=== PATIENT | female | born 1990 | race Caucasian/White ===

== ENCOUNTER 2024-07-07 13:04 | Outpatient (AMB) | payer OTHER, SELFPAY ==
--- NOTE | 2024-07-07 13:02 | MHC.OFFWIV ---
Intake Vital Signs 07/07/24 13:10 Height 5 ft 1 in Weight 154 lb BMI 29.1 BP 110/70 Blood Pressure Location Rt brachial Position Sitting Pulse 69 Pulse Source Pulse Oximeter Pulse Oximetry (%) 99 Oxygen Delivery Method Room Air Intake Visit Reasons: Cramping on Left leg Intake Note: Patient here for left leg pain/tingling in foot that has been present for about 1 month. pain starts at back of calve and radiates down to the bottom of the foot. Patient Tobacco Use Status: Never used Tobacco Allergies No Known Allergies Allergy (Verified 07/07/24 13:12) Do you need a note to return to daycare/school/sports/work: No HPI HPI Comments History of Present Illness Details Patient is a 33-year-old female complaining of left lower extremity pain for the last 4-6 weeks. She states she did not injure herself when this started. She states she does go the gym and lift weights but has not been doing anything out of her typical workout and did not sustain any injuries. She states the pain is in her caught calf and it radiates down to her heel down to the tips of her toes along the bottom of her foot. She had been trying to ice it and rest at but does not seem to be getting any better [facility] Social History Patient Tobacco Use Status: Never used Tobacco Review of Systems Const All systems reviewed & are unremarkable except as noted in HPI and below Physical Exam Vital Signs: Last Vital Signs Pulse 69 07/07/24 13:10 BP 110/70 07/07/24 13:10 Pulse Ox 99 07/07/24 13:10 Oxygen Delivery Method Room Air 07/07/24 13:10 BMI result Body Mass Index 29.1 Const General: cooperative, healthy appearing, comfortable and no acute distress Orientation/consciousness: patient oriented x3 Limitations: no limitations HEENT Head: Yes normal to inspection Resp Effort & Inspection: normal respiratory effort and able to speak in complete sentences Neuro General: patient oriented x3 Extrem Right lower extremity: lower leg (pain with calf squeeze) Details: tenderness Location: of the posterior calf and no edema; no erythema, no lacerations, no ecchymosis and no unusual warmth and foot Assessment & Plan Assessment & Plan (1) Achilles tendinitis, left leg: Code(s): M76.62 - Achilles tendinitis, left leg Plan: Recommended a leave around the clock for 5-7 days as well as taping biophysical therapist and ice and rest. If no improvement, follow up with PCP Plan See above Coding Level of Care Code New Pt Level 3 (57988) Diagnoses Achilles tendinitis, left leg M76.62
[2024-07-07 13:10] VITALS: BP 110/70; PULSE 69; O2SAT 99; BMI 29.1
== END 2024-07-07 13:43 | disposition home or self-care (01) ==
PROVIDERS: Visit Provider Physician Assistant
DX: M76.62 Achilles tendinitis, left leg (principal)
CPT/HCPCS: 99203

== ENCOUNTER 2024-07-16 16:03 | Outpatient (REF) | payer OTHER, SELFPAY ==
--- NOTE | ~2024-07-16 | US_ITS ---
EXAMINATION: ULTRASOUND SOFT TISSUES LEFT PROXIMAL MID CALF CLINICAL INFORMATION: Palpable mass tenderness mid outer lower leg, calf. COMPARISON: None available. TECHNIQUE: Targeted ultrasound images were obtained by the form carpenter of the area of concern as indicated by the patient in the left [id number] medial outer calf. Radiologist was not in attendance. Images were later provided for interpretation. FINDINGS: There appear to be prominent varicose veins extending off the left greater saphenous vein with superintendent compressor stations in the area of concern indicated by the patient in the mid medial left calf. US/US extremity nonvascular rosas IMPRESSION: There appear to be prominent varicose veins extending off the left greater saphenous vein with superintendent compressor stations in the area of concern indicated by the patient in the mid medial left calf. Correlation with clinical exam recommended. Dedicated vascular study of the lower extremity could be considered for further evaluation. Electronically signed by: Alba Parnell MD 07/30/2024 07:01 AM EDT
== END 2024-07-16 16:04 | disposition home or self-care (01) ==
LOC: HO.US 16:03
PROVIDERS: PCP Nurse Practitioner Family; Visit Provider Nurse Practitioner Family
DX: M79.605 Pain in left leg (principal)
CPT/HCPCS: 76882

== ENCOUNTER 2025-07-30 14:25 | Emergency (ER) | payer OTHER, SELFPAY ==
[2025-07-30] VITALS (8 sets, daily range): BP systolic 108–120; BP diastolic 63–82; PULSE 63–105; RESP 14–18; TEMP 36.4–37; O2SAT 95–100; BMI 25.6
--- NOTE | ~2025-07-30 | US_ITS ---
CLINICAL HISTORY: abnormal LFTs ULTRASOUND ABDOMEN LIMITED COMPARISON: None provided. FINDINGS: The liver is unremarkable. There is no focal liver lesion. The gallbladder is unremarkable. No stone, sludge, wall thickening, or pericholecystic fluid. Common bile duct measures 1-2 mm in caliber. Right kidney measures 11.3 cm. No stone or hydronephrosis. Pancreas is not well visualized, the visualized portions are unremarkable. There are no fluid collections. IMPRESSION: 1. No acute disease. This document has been electronically signed by: Aristides Barboza M.D. on 07/30/2025 22:42:50
--- NOTE | 2025-07-30 14:29 | ED_ITS ---
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 No recent travel or procedures she did go fishin recently but no wounds or tick bites. She has no CP/SOB, n/v/d, bloody stools or infectious symptoms. She has been increasing her water intake. She has had episodes where her hands and feet feel tingly and cold. MD complaint: weak/near syncope Onset (ago): day(s) (last night) Location: chest Radiation: non-radiation Severity: mild Relieving factors: none Exacerbating factors: movement Associated symptoms: fever/chills, weakness and other Treatments prior to arrival: none Related Data Home Medications ?Medication ?Instructions ?Recorded ?Confirmed No Known Home Meds 07/07/24 07/07/24 Allergies Allergy/AdvReac Type Severity Reaction Status Date / Time No Known Allergies Allergy Verified 07/30/25 14:29 Review of Systems 2 Review of Systems: Constitutional : No Fever, pos Chills, No Fatigue ENT/Mouth : No sore throat, No Rhinorrhea Eyes: No Eye Pain, No Swelling, No Redness Cardiovascular : No Chest Pain, No SOB, No Dyspnea on Exertion Respiratory : No Cough, No Sputum Gastrointestinal : No Nausea, No Vomiting, No Diarrhea, No abdominal Pain Genitourinary : No Dysuria, No Urinary Frequency, No Hematuria, Musculoskeletal : No joint pain, No Myalgias, No Joint Swelling Skin : No Skin Lesions, No rash Neuro : No Weakness, No Numbness, pos Dizziness, no Headache All other systems reviewed and are negative [facility] Past Medical History Attestation statement: The following information was validated with the patient. Source: old records reviewed Medical History (Updated 07/30/25 @ 22:50 by Marisol Rogers DO) Achilles tendinitis, left leg Social History Social History Alcohol intake: unknown Patient Tobacco Use Status: Never used Tobacco Smoked in Last 30 Days: No Use of substances other than those prescribed or required for medical reasons: No Advance Directives: No Advance Directives Information Provided: No Physical Exam ED Vital Signs: Vital Signs - 24 hr 07/30/25 14:29 07/30/25 17:46 07/30/25 18:27 Temperature 98.6 F 98.3 F Pulse Rate 84 71 68 Respiratory Rate 18 16 Blood Pressure 118/74 117/74 113/79 Pulse Oximetry 100 99 Oxygen Delivery Method Room Air Room Air 07/30/25 18:29 07/30/25 18:32 07/30/25 19:18 Temperature 97.5 F Pulse Rate 105 H 103 H 72 Respiratory Rate 14 Blood Pressure 120/71 115/82 114/71 Pulse Oximetry 97 Oxygen Delivery Method Room Air 07/30/25 22:19 Temperature 98.1 F Pulse Rate 63 Respiratory Rate 16 Blood Pressure 108/63 Pulse Oximetry 98 Oxygen Delivery Method Room Air BMI result Body Mass Index 25.6 Appearance: Alert. Oriented X3. No acute distress. Eyes: Pupils equal, round and reactive to light. ENT: Pharynx normal. Neck: Normal inspection. Neck supple. CVS: Normal heart rate and rhythm. Pulses normal. Respiratory: No respiratory distress. Breath sounds normal. Abdomen: Soft and nontender. Skin: Skin warm and dry. Normal skin color. Extremities: No lower extremity edema. Neuro: Oriented X 3. No motor deficit. No sensory deficit. Course Course Course Narrative: This is a rapid medical exam performed by Keira Barksdale NP: Additional HPI, ROS, PE not included below will be deferred to primary provider. Patient is a 34-year-old female presenting to ED with complaint of HR ranging from high 50's to 120's noted on a pulse oximeter since this morning. Denies chest pain. Complains of feeling lightheaded. Plan: EKG, labs, viral swabs Medications Administered Discontinued Medications Generic Name Dose Route Start Last Admin Trade Name Freq PRN Reason Stop Dose Admin Lactated Ringer's 1,000 mls @ 999 mls/hr 07/30/25 19:00 07/30/25 20:04 Lr IV 07/30/25 20:00 999 mls/hr .Q1H1M ONE Administration Ketorolac Tromethamine 15 mg 07/30/25 21:33 07/30/25 22:01 Ketorolac Tromethamine 15 Mg/Ml Vial IVPUSH 07/30/25 21:34 15 mg ONCE ONE Administration Medical Decision Making Medical Decision Making [facility] Narrative: 34 yo female here with no CP/SOB but having increased HR she has no risk factors for VTE and PERC negative pulse up with orthostatics will give IVF, she has normal EKG, will obtain lytes, hcg, ortho VS, UA, tick panel and reassess after IV hydration. She has slightly elevated LFTs US ordered but no pain or recent GI illness. Denies heavy ETOH use. Differential Diagnosis Differential Diagnoses: The differential diagnosis associated with the presentation includes orthostatics, anemia, tick borne, lytes no CP/SOB to suggest VTE, no risk factors and no DVT Admission/Observation Consideration of admission/observation: Escalation of care including admission/observation considered other than LFTs no acute findings on work up Lab Data [facility] Lab Attestation statement: I reviewed the patient's lab results. 07/30/25 14:55 07/30/25 14:55 Labs: Lab Results 07/30/25 07/30/25 07/30/25 Range/Units 14:55 20:02 21:41 WBC 7.1 (4.8-10.8) X10*3/uL RBC 4.70 (4.20-5.50) X10*6/uL Hgb 13.9 (12.0-16.0) g/dl Hct 40.5 (37.0-47.0) % MCV 86.2 (80.0-98.0) fL MCH 29.6 (27.0-33.0) pg MCHC 34.3 (31.0-35.0) g/dl RDW 11.9 (11.0-16.0) % Plt Count 294 (160-400) X10*3/uL MPV 9.0 L (9.4-12.3) fL Immature Gran % (Auto) 0.1 (0.0-0.4) % Neut % (Auto) 65.0 (45-73) % Lymph % (Auto) 25.9 (20-40) % [place] % (Auto) 7.8 (2-11) % Eos % (Auto) 0.8 (0-4) % Baso % (Auto) 0.4 (0-2) % Lymph # (Auto) 1.8 (1.2-4.9) X10*3/uL [place] # (Auto) 0.6 (0.1-1.2) X10*3/uL Eos # (Auto) 0.1 (0.0-0.4) X10*3/uL Baso # (Auto) 0.0 (0.0-0.2) X10*3/uL Abs Immat Gran (auto) 0.01 (0.00-0.03) X10*3/uL Absolute Neuts (auto) 4.6 (2.0-8.3) x10*3/uL Absolute Nucleated RBC 0.000 (0.0-0.012) X10*3/uL Nucleated RBC % (auto) 0.0 (0.0-0.2) /100WBC Sodium 139 (135-145) mmol/L Potassium 3.6 (3.3-5.1) mmol/L Chloride 107 (96-108) mmol/L Carbon Dioxide 26 (22-29) mmol/L Anion Gap 10 L (12-20) BUN 11 (9-16) mg/dL Creatinine 0.69 (0.5-1.4) mg/dL Estim Creat Clear Calc 110.6 Estimated GFR > 60 Random Glucose 96 (60-115) mg/dL Calcium 9.2 (8.4-10.2) mg/dL Magnesium 1.9 (1.6-2.6) mg/dL Total Bilirubin 1.6 H (0.0-1.0) mg/dL AST 139 H (5-31) U/L ALT 115 H (0-31) U/L Alkaline Phosphatase 63 (39-117) U/L Troponin I High Sens < 2.7 (<3.5-17.0) ng/L Total Protein 6.7 (6.5-8.0) g/dL Albumin 4.4 (3.5-5.0) g/dL TSH 1.06 (0.32-4.0) uIU/mL Beta HCG, Quant < 2 mIU/mL Urine Color Yellow Urine Appearance Clear Urine pH 6.0 (5.0-9.0) Ur Specific [place] 1.015 (1.005-1.025) Urine Protein Negative (Neg-Trace) mg/dL Urine Glucose (UA) Negative (Negative) mg/dL Urine Ketones 15 (Negative) mg/dL Urine Blood Negative (Negative) Urine Nitrite Negative (Negative) Ur Leukocyte Esterase Negative (Negative) COVID-19 (LETICIA) Negative (Negative) COVID-19 Clin Com See Note Independent Interpretation I performed an independent interpretation of an: EKG and Ultrasound (normal ) Interpretation: Rate: 75 Rhythm: NSR [place]: normal Normal P waves. Normal BIRD. Normal QRS complex. ST T wave : inverted t waves V1, normal qTC: normal prior studies: no acute ischemia The study has been interpreted contemporaneously by me. . Radiology Impression Discussion of test interpretation with radiology: I have reviewed the radiologist's reading. External Record Review External record reviewed: Outpatient record Prescription Management I considered prescription management with: Other Discharge Plan Discharge Clinical Impression: Palpitations, Elevated liver enzymes Patient Disposition: Home, Self-Care Instructions: Heart Palpitations (ED), Near Syncope (ED) Additional Instructions: avoid alcohol and tylenol covid swab is negative I have pending tick panels/lyme and hepatitis panel your ultrasound of liver and gallbladder are normal please repeat your liver enzymes by next Sunday - return for yellow eyes or any other symptoms your EKG and cardiac work up was reassuring rest and stay hydarted. Prescriptions: No Action No Known Home Meds Stand Alone Forms: Work/School Release Print Language: [place]
--- NOTE | 2025-07-30 14:31 | ECG_ITS ---
Test Reason : lightheaded Blood Pressure : */* mmHG Vent. Rate : 75 BPM Atrial Rate : 75 BPM P-R Int : 128 ms QRS Dur : 88 ms QT Int : 362 ms P-R-T Axes : 70 56 46 degrees QTcB Int : 404 ms Normal sinus rhythm with sinus arrhythmia Low voltage QRS Borderline ECG No previous ECGs available Referred By: Agatha Barksdale Electronically Signed By: Francis Edgar
[2025-07-30 15:00] LABS: MANUAL DIFF FLAG NO
[2025-07-30 15:01] LABS: Hematocrit 40.5 % (37.0-47.0); Hemoglobin 13.9 g/dl (12.0-16.0); Imm Gran Abs Auto 0.01 X10*3/uL (0.00-0.03); Imm Gran Pct Auto 0.1 % (0.0-0.4); Lymphocytes Absolute Auto 1.8 X10*3/uL (1.2-4.9); Mean Corpuscular HGB Conc 34.3 g/dl (31.0-35.0); Mean Corpuscular Hemoglobin 29.6 pg (27.0-33.0); Mean Corpuscular Volume 86.2 fL (80.0-98.0); NRBC Abs Auto 0.000 X10*3/uL (0.0-0.012); NRBC Pct Auto 0.0 /100WBC (0.0-0.2); Platelet Count 294 X10*3/uL (160-400); Red Blood Count 4.70 X10*6/uL (4.20-5.50); White Blood Count 7.1 X10*3/uL (4.8-10.8)
[2025-07-30 15:35] LABS: Alanine Aminotransferase 115 U/L (0-31); Albumin Level 4.4 g/dL (3.5-5.0); Alkaline Phosphatase 63 U/L (39-117); Anion Gap 10 (12-20); Aspartate Amino Transferase 139 U/L (5-31); Blood Urea Nitrogen 11 mg/dL (9-16); Calcium 9.2 mg/dL (8.4-10.2); Carbon Dioxide 26 mmol/L (22-29); Chloride 107 mmol/L (96-108); Creatinine Clr Calc Pharmacy 110.6; Estimated Glomerular Filt Rate > 60; Magnesium 1.9 mg/dL (1.6-2.6); Potassium 3.6 mmol/L (3.3-5.1); Sodium 139 mmol/L (135-145); Total Protein 6.7 g/dL (6.5-8.0); Troponin-I High Sensitivity < 2.7 ng/L (<3.5-17.0)
--- OUTSIDE RECORDS SUMMARY | 2025-07-30 18:22 | XMS_ITS | Encounter Summary ---
Author Organization [facility] Address [address] [place] [address] [place] [id number] Phone Care Team Providers Care Antisqueak Applier Name Role Phone Mirta Casillas MD Primary Care Provider Reyna Goode JAVA DEVELOPER Primary Care Provider Pcp, Unknown Primary Care Provider Ba Rosenbaum JAVA DEVELOPER Primary Care Provider [phone] Encounter Details Date Type Department Care Team (Late st Contact Info) Description 11/28/2018 Procedure Pass [facility] L[facility]D Procedures [address] [place] [address] Social History Tobacco Use Types Packs/Day Years Used Date Smoking Tobacco: Never Smokeless Tobacco: Never Alcohol Use Standard Drinks/Week Comments No 0 (1 standard drink = 0.6 oz pur e alcohol) Comments No Sex and Gender Information Value Date Recorded Sex Assigned at Not on file Legal Sex Female 12:15 PM EDT Gender Identity Not on file Sexual Orientation Not on file 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 Not on file Not on file documented as of this encounter Plan of Treatment Not on file documented as of this encounter Visit Diagnoses Not on filedocumented in this encounter Care Teams Antisqueak Applier Relationship Specialty Start Date End Date Mirta Casillas MD [address] [place] [address] PCP - General Family Medicine 12/1/18 4/24/19 Reyna Goode NP [address] [place] [id number] [email or web address] PCP - General Family Medicine 03/20/19 06/05/21 Pcp, Unknown PCP - General 06/06/21 06/30/21 Ba Contreras NP PCP - General 07/01/21 documented as of this encounter Additional Source Comments The information contained in this document represents components of the legal health record. It is not the complete legal health record.[facility]
--- OUTSIDE RECORDS SUMMARY | 2025-07-30 18:22 | XMS_ITS | Clinical Summary ---
Author Organization [facility] Address [address] [place] [id number] Care Team Providers Care Supervisor Microbiology Technologists Name Role Phone Unavailable Primary Care Provider Unavailabl e Allergies Active Allergy Reactions Criticality Noted Date Comments Adhesive Tape Other (See Comments) 10/30/2023 EKG leads, gel on electrodes irritates skin, requiring Benadryl Medications No known medications Social History Tobacco Use Types Packs/Day Years Used Date Smoking Tobacco: Never Smokeless Tobacco: Never Tobacco Cessation:Counseling Given: Not Answered Alcohol Use Standard Drinks/Week Comments Not Currently 0 (1 standard drink = 0.6 oz pur e alcohol) Special occasions Sex and Gender Information Value Date Recorded Sex Assigned at Female 10/22/2023 9:31 AM EST Gender Identity Not on file Sexual Orientation Not on file Job Start Date Occupation Industry Not on file Not on file Not on file Last Filed Vital Signs Vital Sign Reading Time Taken Comments Blood Pressure 109/61 11/05/2023 4:13 PM EST Pulse 98 11/05/2023 4:13 PM EST Temperature 37.4 C (99.3 F) 11/05/2023 4:00 PM EST Respiratory Rate 16 11/05/2023 4:13 PM EST Oxygen Saturation 95% 11/05/2023 4:13 PM EST Inhaled Oxygen Concentration - - Weight 68 kg (150 lb) 10/30/2023 2:59 PM EST Height 153.7 cm (5' 0.5 ) 10/30/2023 2:59 PM EST Body Mass Index 28.81 10/30/2023 2:59 PM EST Plan of Treatment Not on file
--- OUTSIDE RECORDS SUMMARY | 2025-07-30 18:22 | XMS_ITS | Encounter Summary ---
Author Organization [facility] Address [address] [facility] [address] [place] [address] Phone Care Team Providers Care Water Trainer Name Role Phone BenBa stewart Scott HYDROGRAPHIC SURVEYOR Primary Care Provider [phone] Encounter Details Date Type Department Care Team ([facility] Contact Info) Description 03/22/2022 Procedure Pass [facility] L[facility] Procedures [address] [place] [address] Social History Tobacco Use Types Packs/Day Years Used Date Smoking Tobacco: Never Smokeless Tobacco: Never Alcohol Use Standard Drinks/Week Comments Not Currently 0 (1 standard drink = 0.6 oz pur e alcohol) Comments No Sex and Gender Information Value Date Recorded Sex Assigned at Not on file Legal Sex Female 12:15 PM EDT Gender Identity Not on file Sexual Orientation Not on file Occupation Industry Job Start Date Job End Date RN Not on file Not on file Not on file documented as of this encounter Functional Status * Calculated C-SSRS Risk Score (Lifetime/Recent) Answer Date of Assessment Author No Risk Indicated 03/24/2022 11:18 AM PETERT Herminio Montoya RN * Real Suicide Severity Rating Scale (Screener/Recent Self-Report) Question Answer Date of Assessment Author 1. Wish to be (Past 1 Month) No 022 11:18 AM EDT Herminio Montoya, OSWALD 2. Non-Specific Active Suici theodora Thoughts (Past 1 Month) No 03/24/2022 11:18 AM EDT Jenny Montoya RN 6. Suicidal Behavior (Lifetime) No 04/29/202 2 11:18 AM EDT Herminio Montoya RN documented as of this encounter Plan of Treatment Not on file documented as of this encounter Visit Diagnoses Not on filedocumented in this encounter Care Teams Water Trainer Relationship Specialty Start Date End Date Ba Contreras NP PCP - General 07/01/21 documented as of this encounter Additional Source Comments The information contained in this document represents components of the legal health record. It is not the complete legal health record.[facility]
--- OUTSIDE RECORDS SUMMARY | 2025-07-30 18:22 | XMS_ITS | Clinical Summary ---
Author Organization [facility] Address [address] [place] [phone] Phone Care Team Providers Care Head Baggage Porter Name Role Phone Ba Contreras BELT MACHINE OPERATOR Primary Care Provider [phone] Allergies Active Allergy Reactions Criticality Noted Date Comments Adhesive Tape-Silicones Other (See Comments) 10/30/2023 EKG leads, gel on electrodes irritates skin, requiring Benadryl Medications No known medications Active Problems Problem Noted Date Diagnosed Date Pap smear abnormality of cer vix/human papillomavirus (HPV) positive 08/07/2022 Intractable migraine with aura 09/12/2021 Overview (09/12/2021): Well managed w/ tylenol. Was very prevalent during adolescent Assessment & Plan (09/12/2021 2:46 PM EDT): Well managed w/ tylenol. Was very prevalent during adolescent Anxiety and depression 09/12/2021 Overview (09/12/2021): Hx of anxiety and depression. Goes to the gym. Not on meds and does not see a therapist. States she is managing well. Assessment & Plan (09/12/2021 2:45 PM EDT): Hx of anxiety and depression. Goes to the gym. Not on meds and does not see a therapist. States she is managing well. History of abnormal cervical Pap smear Overview (08/15/2022): 2020: ASCUS/HPV pos, colpo benign 2020: LGSIL/HPV pos, colpo appeared normal (no bx done bc of ) 2021: ASCUS/HPV pos, colpo benign Plan: repeat pap in 1 year Assessment & Plan (08/07/2022 10:55 AM EDT): 2019: ASCUS/HPV pos, colpo benign 2020: LGSIL/HPV pos, colpo appeared normal (no bx done b/c of ) 2021: ASCUS/HPV pos Assessment & Plan (12/21/2021 9:22 AM EST): A colposcopy was done in October and the overall impression was no dysplasia. Plan on repeat Pap . Diastasis recti 01/23/2019 Need for hepatitis B vaccination 05/21/2017 Migraine, unspecified, not i ntractable, without status migrainosus 06/11/2015 Resolved Problems Problem Noted Date Diagnosed Date Resolved Date Normal intrauterine , antepartum 03/22/2022 05/02/2022 Assessment & Plan (03/22/2022 4:24 AM EDT): -SROM confirmed. Pos Nitrazine. Grossly ruptured -Breech confirmed today w/ Bedside US -Admit to CBC -Pt consented to COVID testing -Admission labs ordered -Reactive NST -Cont. Monitoring -GBS was collected yesterday results still pending. Will treat as GBS unknown -Pre-op abx ordered -MD in house -Plan for repeat C/S when acuity of the floor permits -Last PO intake at midnight -Anticipate Velamentous insertion of umb ilical cord in third trimester 11/22/2021 05/02/2022 Overview (02/28/2022): Level 2 (R/o vaso previa): done 01/02/22: no e/o vasa previa Serial Growth U/S q 4-6 wks NST and BPP weekly after 36 wks Delivery by 40 wks Continuous EFM 02/07/22 (30'5) - BPP 8 13th%ile 02/28/22 - had level 2, reported as normal biometry Assessment & Plan (03/14/2022 8:31 AM EDT): Plan on twice-weekly testing until her . This will be NSTs alternating with BPP's. NST this . Had BPP of 07/03 yesterday. We will plan on growth ultrasound for next week. movement counts reviewed. Assessment & Plan (03/02/2022 3:38 PM EDT): Next BPP ordered, check growth again in a month Assessment & Plan (12/21/2021 9:21 AM EST): There is no evidence of vasa previa on her routine anatomic survey. However, it is reasonable to check a Level II. Otherwise plans here ultrasounds for growth and weekly NSTs at 36 weeks. Rubella non-immune status, antepartum 10/22/2021 08/07/2022 Overview (10/22/2021): Really, rubella equivocal. Vaccinate PP. Encounter for supervision of normal in third trimester 09/12/2021 08/07/2022 Overview (02/28/2022): OB-CMI score: 1 [09/12/2021] Group PN care? No Rh Positive GC/Chlam - Negative PAP 10/16 - LGSIL/HPV Positive; colpscopic impression - no dysplasia Rubella equivocal Tdap: done Flu: done Hgb 12 GTT 127 28 wk Repeat RPR neg GBS * PPBC - discussed option for TL; she will consider; also advised that IUD can be placed at time of c section if they are not certain of permanence of TL screening * Assessment & Plan (03/14/2022 8:07 AM EDT): She notes good movement. Denies any vaginal bleeding, leakage of fluid, or regular contractions. Overall, she is doing well. Plan GBS next visit. Assessment & Plan (02/28/2022 11:05 AM EDT): Here with and son Kj Baez FM, had Level 2 yesterday with good growth, a repeat in 2 weeks is set up with our MFM Considering TL with the C section lilliana with h/o migraine with aura; had an IUD that was malpositioned - let her know that IUD can be placed at time of c section; reminded re permanence of TL Assessment & Plan (12/21/2021 9:17 AM EST): She notes good movement. She denies any vaginal bleeding, leakage of fluid, or regular contractions. Overall, she is doing well. Plan on CBC, repeat RPR, and Glucola over the next couple of weeks. Assessment & Plan (09/12/2021 2:49 PM EDT): Marleni is a 30 y.o. at 9w4d states she feels well today. Her only concern is increase N/V. States it is worse during this in comparison to her previous . Denies any LOF/Vaginal bleeding/Ucs. -Review warning signs and when/how to contact midwives -Re-oriented to our practice -Advised on care structure -Will like cfDNA for genetic testing. Will call insurance to see if its covered -Will like CF carrier screening. -Unsure if she wants to see CNM or MD. Nausea and vomiting 09/12/2021 08/07/20 22 Assessment & Plan (09/12/2021 2:42 PM EDT): Anticipatory guidance provided regarding nausea and vomiting in . We reviewed that nausea is a common symptom and is self-limited, usually resolving by mid- with or without treatment. We discussed that initial treatment involves reassurance and counseling on dietary and lifestyle changes, including eating consistently every 2-3 hours, bland foods, issa tea or chews, gum, acupressure bands. We reviewed realistic expectations, and discussed that interventions may not completely resolve nausea. Tips for Managing Nausea in Early Issa cindy, chews or tea Peppermint tea Eat small frequent meals- graze every 2-3 hours so your stomach is never empty. Avoid large meals. Eat slowly. Keep snacks (crackers, pretzels, nuts) by your bedside- sometimes eating a little bit before getting up will help a lot. Avoid foods that have strong odors. Sucking on a lemon or [place] slice may help. Don't worry about adhering to a balanced diet unless you are diabetic; just eat whatever appeals to you until the nausea goes away. [place] foods often make nausea worse. Acupressure wristbands might help- sold in drug and health food stores. Acupuncture may also be helpful. Try drinking carbonated beverages between meals; wait for 30 minutes after eating to drink liquids. vitamins can make nausea worse; try taking them before bed, and if that doesn't help, stop taking them until your nausea goes away. Discuss with your provider. If you are not taking vitamins you should take one tablet of folic acid daily (0.4 mg which is 400micrograms per day) during the first trimester. Folic acid will not make nausea worse. Try vitamin B6 25mg three times a day can help and it's considered to be safe. Most importantly, nausea is very common . However, if you have severe vomiting and you aren't keeping anything down for 24 hours or more, give us a call and we'll help. She was instructed to call if she has severe N/V, is unable to keep food and fluid down x 24 hours, stops producing urine, feels faint or dizzy, or loses a significant amount of weight. History of delivery 09/12/2021 05/02/2022 Overview (02/28/2022): Planning RCS- with RAP at 39 weeks, scheduled Assessment & Plan (03/14/2022 8:18 AM EDT): Repeat has been scheduled. Assessment & Plan (02/28/2022 11:03 AM EDT): I had delivered her first! Has formal H&P in future; advised small increased risk of bladder injury; answered her questions as what to expect with a scheduled, some logistical issues, expect spinal, can stay x 4 days, etc If still breech, a few extra maneuvers to deliver at C section Assessment & Plan (12/21/2021 9:36 AM EST): She may consider repeat given the velamentous cord insertion but will await results of level 2. Assessment & Plan (09/12/2021 2:50 PM EDT): -Unsure if she wants to or not -Will like further counseling Encounter for preconception consultation 12/16/2020 10/19/2021 Assessment & Plan (12/16/2020 2:45 PM EST): Reassured pt it is not unusual to have light menses after several years of Mirena use. Menses are regular. Reassured pt that it is normal to take 6-12 mos to conceive. No risk factors for identified. Recessive gene testing discussed. Believes she had CF testing in the past. Old records on the chart and I initially did not find record of the test. Will check again and if not located will contact previous dyer and washer office for results. Pt doesn't recall getting result or what was tested. Pt to monitor menses and menstrual frequency. Most likely time of ovulation based on 30 day cycle reviewed with pt. May consider prolactin, TSH testing if not conceiving spontaneously. Surveillance of intrauterine contraceptive device 07/05/2020 08/27/2020 Assessment & Plan (07/06/2020 9:27 AM EDT): IUD string visualized. Pelvic cramping 07/05/2020 10/19/2021 Assessment & Plan (07/06/2020 9:27 AM EDT): Unable to elicit significant pelvic discomfort on exam today. IUD string is visualized. Advised patient symptoms may be related to cycle related ovarian symptoms. However, patient not clear if there is cyclic nature to her pain. Seems more random. Plan for pelvic ultrasound. Findings normal, may consider intermittent NSAID use versus alternative contraceptive method. Advised patient that time we will utilize a combination OCP IUD is in place; however, patient has history of migraine with aura did not do so well on combination OCP in the past. Will contact patient with results of ultrasound. care following delivery 11/30/2018 01/23/2019 Anemia associated with acute blood loss 11/30/2018 01/09/2019 Overview (11/30/2018): h/h 9.0/26.4, patient asymptomatic Begin iron supplement after discharge Normal labor 11/28/2018 11/30/2018 Overview (11/28/2018): 11/27/2018 1100 Re-admitted to [facility] in early labor, is unable to cope with labor at home any longer, requesting nitrous. SVE 3/90/-2. 1500 Using nitrous with relief, SVE 4/90/-2. 1630 Requesting epidural, SVE deferred. 1830 Sleeping soundly with epidural, SVE deferred 2130 Comfortable with epidural SVE 5/90/-2. 11/28/2018 0300 Resting comfortably, SVE 7/90/-2, AROM of large forebag 0530 SVE 7/90/0, sleeping comfortably 0630 No change in cervical exam, SVE 7/90/0. 0900 Pitocin augmentation started A: - Spontaneous labor -SROM - GBS negative - Cat I EFM with periods of cat 2 P: - EFM cont - Pitocin titration per protocol Uterine contractions during 11/27/2018 11/30/2018 Normal intrauterine , antepartum 11/26/2018 11/30/2018 Prolonged latent phase of labor 11/25/2018 11/30/2018 Overview (11/28/2018): 27 y.o. at 39w4d 11/25 Contractions started at 2029 2230 SVE 1/40/-3 11/26 0030 SVE 1.5/60/-3 0100 Stadol and phenergan for sleep 0420 Nitrous Category 1 reactive tracing Contractions q 2-4 minutes GBS negative 27 y.o. at 39w4d in early labor P: Expectant management Nitrous for pain Re-assess cervix in 2 hours or sooner PRN 11/26 10:30 2/80/-3 Chooses morphine sleep Encounter for supervision of low-risk first in second trimester 08/08/2018 01/23/2019 Overview (11/21/2018): CNM Rh O positive Tdap 05/2018 Flu rec'd at school Hgb 11.4 GTT 127 GBS neg PPBC POPs NT testing Immunizations Immunization Administration Dates Next Due HPV,quadrivalent 06/28/2007,03/22/2007 Hepatitis B Adult 08/09/2017, 7,05/30/2017,09/19,01/18/1993,1992 INFLUENZA, SPLIT VIRUS, TRIVALENT PF 10/19/2015, 08/31/2014,10/18/2013 Influenza Quadrivalent Prese rvative Free IM 09/29/2021,08/24/2017,10/23/2016 MMR 06/01/2017,05/25/1998,03/31/1994 Meningococcal MCV4P 07/06/2011 PPD Test 05/30/2017 Tdap 02/03/2022, 8,05/14/2014,05/11 Family History Medical History Relation Comments No Known Problems Brother 1 No Known Problems Brother 2 Hyperlipidemia Father COPD Maternal Grandfather Diabetes Maternal Grandfather Heart failure Maternal Grandfather Hyperlipidemia Maternal Grandfather Hypertension Maternal Grandfather No Known Problems Mother Diabetes Paternal Grandmother Heart failure Paternal Grandmother Relation Status Comments Brother 1 Alive Brother 2 Alive Father Alive Maternal Grandfather Alive Mother Alive Paternal Grandmother Alive Son Alive Social History Tobacco Use Types Packs/Day Years Used Date Smoking Tobacco: Never Passive Smoke Exposure: Never Smokeless Tobacco: Never Tobacco Cessation:Counseling Given: Not Answered Alcohol Use Standard Drinks/Week Comments Not Currently 1 (1 standard drink = 0.6 oz pur e alcohol) Education Answer Date Recorded Are you interested in more education? Not on enriqueta e 03/23/2023 Are you concerned about learning? Not on file 03/23/2023 No 03/23/2023 No 03/23/2023 Digital Access Answer Date Recorded No 04/21/2023 No 04/21/2023 Reliable internet access at home? Not on file 04/21/2023 Device with a working camera? Not on file Comments No Sex and Gender Information Value Date Recorded Sex Assigned at Not on file Legal Sex Female 12:15 PM EDT Gender Identity Not on file Sexual Orientation Not on file Occupation Industry Job Start Date Job End Date RN Not on file Not on file Not on file Last Filed Vital Signs Vital Sign Reading Time Taken Comments Blood Pressure 90/58 12/04/2023 3:12 PM EST Pulse 66 03/24/2022 11:18 AM EDT Temperature 36.2 C (97.2 F) 03/24/2022 11:18 AM EDT Respiratory Rate 18 03/24/2022 11:18 AM EDT Oxygen Saturation 98% 03/24/2022 11:18 AM EDT Inhaled Oxygen Concentration - - Weight 69.9 kg (154 lb) 12/04/2023 3:12 PM EST Height 153.7 cm (5' 0.5 ) 08/30/2023 10:01 AM ED T Body Mass Index 29.58 08/30/2023 10:01 AM EDT Plan of Treatment Health Maintenance Due Date Last Done Comments DEPRESSION SCREENING 2004 PAP SMEAR 08/30/2024 08/30/2023, 060 05/2022, 10/19/2021, Additional history exists INFLUENZA VACCINE (#1) 2025 , 08/24/2017, 10/23/2016, Additional history exists COVID-19 VACCINE ( season) 2025 11/01/2023, 04/20/2022, 01/03/2021, Additional history exists Adult Td,Tdap Booster 02/04/2032 02/03/2022 , 06/13/2018, 05/14/2014, Additional history exists MENINGOCOCCAL VACCINES (ACWY) Completed 07/06/2011 HEPATITIS C SCREENING Completed 10/19/2021 HIV ONE-TIME SCREENING (18-65 YEARS) Completed 10/19/2021 SMOKING STATUS SCREENING (Once After 26 Yrs) Completed 12/04/2023 HEPATITIS A VACCINES Aged Out No long er eligible based on patient's age to complete this topic HIB VACCINES Aged Out No longer eligi ble based on patient's age to complete this topic MENINGOCOCCAL VACCINES (B) Aged Out N o longer eligible based on patient's age to complete this topic PNEUMOCOCCAL VACCINES (0-49 years) Aged Out No longer eligible based on patient's age to complete this topic Medical Devices Not on file Procedures Procedure Name Priority Date/Time Associated Diagnosis Comments PAP TEST Routine 08/30/2023 12:00 AM EDT HEPATITIS C ANTIBODY, QUALITATIVE Routine 10/19/2021 2:22 PM EST Encounter for supervision of other normal in second trimester from Last 3 Months or Most Recently Relevant to Health Maintenance Results * Pap Test (08/30/2023 12:00 AM EDT) 08/30/2023 08/31/2023 8:4 5 AM EDT Narrative SEE NARRATIVE - 09/06/2023 2:08 PM EDT [address] [address] [place] Emergency Services Manager: Glenys Long MD MANAGER STUDENT SERVICES Cytology Report FINAL DIAGNOSIS A. PAP SMEAR (SUREPATH) CE: SPECIMEN ADEQUACY: Satisfactory for evaluation; transformation zone present. INTERPRETATION: NEGATIVE FOR INTRAEPITHELIAL LESION OR MALIGNANCY. Reactive changes. Electronically Signed Out By: MD Lynette Carballo CT(ASCP) By his/her signature above, the pathologist listed as making the Final Diagnosis certifies that he/she has personally reviewed this case and confirmed or corrected the diagnosis. The Pap test is a screening test primarily for squamous cancers and precursors and has associated false-negative and false-positive results. New technologies such as liquid-based preparations may decrease but will not eliminate all false-negative results. Regular sampling and follow-up of unexplained clinical signs and symptoms are recommended to minimize false negative results. PROCEDURES/ADDENDA HPV Testing (Requested) Ordered Date: 08/31/2023 A. PAP SMEAR (SUREPATH) CE: Human Papilloma Virus Test NEGATIVE for high-risk Human Papilloma Virus types 16, 18, 45 and the Other high risk probe set (Includes 31, 33, 35, 39, 51, 52, 56, 58, 59, 66, 68) Note: Testing performed by [employer] Onclarity HR-HPV analysis. Clinical correlation is advised. This HPV test was performed at [facility], [address] [place] [address]. This test has been FDA approved for SurePath cervical cytology specimens. The accuracy and precision of this test for all other specimen sources has been verified in the Cytopathology Laboratory of the [facility] and has not been cleared or approved by the U.S. Food and Drug Administration. Clinical correlation is advised. CLINICAL HISTORY Date of Last Menstrual Period: 08-17-2023 Infection History: HPV: OTHER HIGH RISK, 2019, 2020, 2021 Other Clinical Conditions: Screening Pap Abnormal PAP: ASCUS, 2021. LSIL, 2020 SPECIMEN SOURCE A: PAP SMEAR (SUREPATH) CE Patient Name: YESSICAVIV MARTINEZN : 1990 (Age: 32) Sex: F Institution: [facility] Location: [facility] Date of Collection: 08/30/2023 Date of Reported: 09/04/2023 17:55 Results to: Crys Arzate MSN Crys Arzate CNM CYTOLOGY ORDERABLES Edited Resul t - Final Performing Organization Address City/[facility]/ZIP Co de Phone Number SEE NARRATIVE * Hepatitis C antibody, qualitative (10/19/2021 2:22 PM EST) HCV NON-REACTIV E NON-REACTI VE [facility] Blood 10/19/2021 2:22 PM EST 10/19/2021 2:34 PM EST Adebayo Espinoza MD LAB BLOOD ORDERABLES Final Re sult Performing Organization Address City/[facility]/ZIP Co de Phone Number [address] [id number] from Last 3 Months or Most Recently Relevant to Health Maintenance Insurance [facility] [employer] [employer] [place] [employer] [address] [facility] [place] [address] [address] [facility] [place] [address] Advance Directives For more information, please contact: [phone] (9AM - 5PM [place], Sunday-Sunday) Documents on File Type Date Recorded Patient Surgical Lead Expl anation Healthcare Proxy 12/03/2018 1:40 PM * Full Code (Latest Code Status on File) Date Activated Date Inactivated Comments 03/22/2022 6:34 AM Question Answer Comments Code Status Confirmed With: Patient * Full Code Date Activated Date Inactivated Comments 03/22/2022 4:09 AM 03/22/2022 6:31 AM Question Answer Comments Code Status Confirmed With: Patient * Full Code (Presumed) Date Activated Date Inactivated Comments 11/28/2018 12:47 PM 12/02/2018 3:13 PM * Full Code (Presumed) Date Activated Date Inactivated Comments 11/27/2018 10:55 AM 11/28/2018 12:47 PM * Full Code (Presumed) Date Activated Date Inactivated Comments 11/26/2018 12:58 AM 11/26/2018 8:54 PM Care Teams Head Baggage Porter Relationship Specialty Start Date End Date Ba Contreras NP PCP - General 07/01/21 Additional Source Comments The information contained in this document represents components of the legal health record. It is not the complete legal health record.[facility]
--- OUTSIDE RECORDS SUMMARY | 2025-07-30 18:22 | XMS_ITS | Clinical Summary ---
Author Organization [facility] Address [address] [place] [address] Care Team Providers Care Commercial Real Estate Sales Manager Name Role Phone Unavailable Primary Care Provider Unavailabl e Surgical History Surgery Date Site/Laterality Comments SECTION PROCEDURE: SECTION;COMMENT:x2 FOOT SURGERY 2008 Left PROCEDURE:FOOT SURGERY;COMMENT:Osteotomy WISDOM TOOTH EXTRACTION PROCEDURE:WISDOM TOOTH EXTRACTION OTHER SURGICAL HISTORY 11/05/2023 N/A PROCEDURE:ABDOMINOPLASTY;COMMENT:P rocedure: ABDOMINOPLASTY; Surgeon: Jacob Longoria MD; Location: [facility] MAIN OPERATING ROOM; Service: Plastics; Laterality: N/A; Medical History Medical History Date Comments Migraine headache DX:Migraine he adache Anxiety DX:Anxiety;COMME NT:Reported by pt Social History Tobacco Use Types Packs/Day Years Used Date Smoking Tobacco: Never Smokeless Tobacco: Never Alcohol Use Standard Drinks/Week Comments Not Currently 0 (1 standard drink = 0.6 oz pur e alcohol) Comments Unknown Sex and Gender Information Value Date Recorded Sex Assigned at Not on file Legal Sex Female 8:51 PM EST Gender Identity Not on file Sexual Orientation Not on file Obstetrics History Plan of Treatment Health Maintenance Due Date Last Done Comments DTaP,Tdap,and Td Vaccines (1 - Tdap) 2011 Hepatitis B Vaccines (1 of 3 - 19+ 3-dose series) 2011 Cervical Cancer Screening: P ap Smear 2013 HIV Screening 12/21/2023 Hepatitis C Screening 12/21/2023 Social Influencers of Health Screening 12/21/2023 Depression Screening 11/26/2024 COVID-19 Vaccine ( - 2023-2 5 season) 2025 Influenza Vaccine (#1) 2025 HIB Vaccines Aged Out No longer eligi ble based on patient's age to complete this topic HPV Vaccines Aged Out No longer eligi ble based on patient's age to complete this topic Hepatitis A Vaccines Aged Out No long er eligible based on patient's age to complete this topic IPV Vaccines Aged Out No longer eligi ble based on patient's age to complete this topic MMR Vaccines Aged Out No longer eligi ble based on patient's age to complete this topic Meningococcal ACWY Vaccine Aged Out N o longer eligible based on patient's age to complete this topic Meningococcal B Vaccine Aged Out No l onger eligible based on patient's age to complete this topic Pneumococcal Vaccine: Pediat rics (0 to 5 Years) and At-Risk Patients (6 to 49 Years) Aged Out No longer eligible b ased on patient's age to complete this topic RSV Immunization Patients Un jaime 20 months Aged Out No longer eligible b ased on patient's age to complete this topic Varicella Vaccines Aged Out No longer eligible based on patient's age to complete this topic
[2025-07-30] MEDS: Lactated Ringers 1,000 ML 999 ML IV (20:04)
[2025-07-30 20:50] LABS: Appearance Urine Clear; Glucose Urine UA Negative (Negative); PH 6.0 (5.0-9.0); Specific Gravity - Urine 1.015 (1.005-1.025)
[2025-07-30 22:11] LABS: COVID-19 Test Negative (Negative); IDNOW Serial# 08D9AD1C
[2025-07-31 01:31] LABS: COVID-19 Test Invalid (Negative); IDNOW Serial# 6674DD1D
[2025-07-31 04:44] LABS: HBS Num1 11.19 mIU/mL (0-7.99); HBc Num1 0.14 S/CO (0.00-0.79); HBsAGNum1 0.50 S/CO (0.00-0.99); Hepatitis A Antibody IgM 0.11 Index (0-0.79); Hepatitis B Surface Antigen Negative (Negative); ~HepC Num1 0.09 S/CO (0.00-0.79); ~Hepatitis A Antibody IgM Nonreactive (Nonreactive); ~Hepatitis C Antibody Nonreactive (Nonreactive)
[2025-07-31 05:57] LABS: HBS Num2 12.49 mIU/mL (0-7.99); HBS Num3 11.71 mIU/mL (0-7.99)
[2025-07-31 05:58] LABS: ~Hepatitis B Surface Antibody GRAYZONE (Nonreactive)
[2025-08-01 12:28] LABS: Lyme Abs Screen <0.90 index
[2025-08-01 18:23] LABS: A. Phagocytphilium DNA,RT-PCR NOT DETECTED (NOT DETECTED); Babesia Microti DNA, RT-PCR NOT DETECTED (NOT DETECTED); Borrelia Miyamotoi,DNA RT-PCR NOT DETECTED (NOT DETECTED); E.Chaffeensis DNA RT-PCR NOT DETECTED (NOT DETECTED); Lyme(Borrelia ssp)DNA RT-PCR NOT DETECTED (NOT DETECTED)
== END 2025-07-30 23:12 | disposition home or self-care (01) ==
PROVIDERS: Registered Nurse Emergency; Emergency Provider Emergency Medicine; PCP Nurse Practitioner Family
DX: R00.2 Palpitations (principal); R74.01 Elevation of levels of liver transaminase levels; R42 Dizziness and giddiness
CPT/HCPCS: 36415; 76705; 80053; 81003; 83735; 84443; 84484; 84702; 85025; 86617; 86618; 86704; 86706; 86709; 86803; 87340; 87468; 87469; 87478; 87484; 87635; 87798; 93005; 96374; 99284; 99285; J1885; J7120

== ENCOUNTER → 2025-07-30 14:31 | Outpatient (BNV) | payer OTHER, SELFPAY | PROVIDERS: Emergency Provider Emergency Medicine; PCP Nurse Practitioner Family; Visit Provider Internal Medicine Cardiovascular Disease | DX: R42 Dizziness and giddiness (principal) | CPT/HCPCS: 93010 ==

== ENCOUNTER → 2025-07-30 19:00 | Outpatient (BNV) | payer OTHER, SELFPAY | PROVIDERS: Emergency Provider Emergency Medicine; PCP Nurse Practitioner Family; Visit Provider Radiology Diagnostic Radiology | DX: R94.5 Abnormal results of liver function studies (principal) | CPT/HCPCS: 76705 ==